=== PATIENT | female | born 1985 | race Caucasian/White ===

== ENCOUNTER 2022-03-09 18:44 | Emergency (ER) | payer SELFPAY ==
[2022-03-09] MEDS ORDERED: Ibuprofen 800 MG TAB ONE (19:32)
== END 2022-03-09 19:36 | disposition home or self-care (01) ==
LOC: NAV ERS 18:44
DX: S80.12XA Contusion of left lower leg, initial encounter (principal); S80.11XA Contusion of right lower leg, initial encounter; F17.210 Nicotine dependence, cigarettes, uncomplicated; X58.XXXA Exposure to other specified factors, initial encounter